=== PATIENT | female | born 1945 | race Caucasian/White ===

== ENCOUNTER → 2021-01-29 | Outpatient (CLI) | payer OTHER, MEDICARE | LOC: SJCVC 12:53 | PROVIDERS: ATTEND Internal Medicine | DX: R94.31 Abnormal electrocardiogram [ECG] [EKG] (principal); R06.09 Other forms of dyspnea; I34.1 Nonrheumatic mitral (valve) prolapse; D68.51 Activated protein C resistance; E78.5 Hyperlipidemia, unspecified; R53.83 Other fatigue; R00.2 Palpitations; R09.89 Other specified symptoms and signs involving the circulatory and respiratory systems; Z79.899 Other long term (current) drug therapy; Z79.01 Long term (current) use of anticoagulants; Z82.49 Family history of ischemic heart disease and other diseases of the circulatory system ==

== ENCOUNTER → 2021-03-14 | Outpatient (CLI) | payer OTHER, MEDICARE | LOC: SJCVCIMAG 09:31 | PROVIDERS: ATTEND Internal Medicine | DX: I08.1 Rheumatic disorders of both mitral and tricuspid valves (principal); I27.20 Pulmonary hypertension, unspecified; I49.3 Ventricular premature depolarization; I73.9 Peripheral vascular disease, unspecified; M79.604 Pain in right leg; M79.605 Pain in left leg; I48.0 Paroxysmal atrial fibrillation; D68.51 Activated protein C resistance; E78.5 Hyperlipidemia, unspecified; R53.83 Other fatigue; R06.00 Dyspnea, unspecified; Z98.890 Other specified postprocedural states; Z88.8 Allergy status to other drugs, medicaments and biological substances; Z79.01 Long term (current) use of anticoagulants; Z79.899 Other long term (current) drug therapy; Z82.49 Family history of ischemic heart disease and other diseases of the circulatory system ==

== ENCOUNTER → 2021-03-24 | Outpatient (CLI) | payer OTHER, MEDICARE | LOC: RAD 12:31 | PROVIDERS: ATTEND Internal Medicine | DX: R06.00 Dyspnea, unspecified (principal) ==

== ENCOUNTER → 2021-06-18 | Outpatient (CLI) | payer OTHER, MEDICARE | LOC: SJCVC 13:07 | PROVIDERS: ATTEND Internal Medicine | DX: R94.31 Abnormal electrocardiogram [ECG] [EKG] (principal); I48.0 Paroxysmal atrial fibrillation; E78.5 Hyperlipidemia, unspecified; D68.51 Activated protein C resistance; G47.33 Obstructive sleep apnea (adult) (pediatric); J45.909 Unspecified asthma, uncomplicated; Z88.8 Allergy status to other drugs, medicaments and biological substances; Z79.01 Long term (current) use of anticoagulants; Z79.899 Other long term (current) drug therapy; Z82.49 Family history of ischemic heart disease and other diseases of the circulatory system ==

== ENCOUNTER → 2021-12-31 | Outpatient (CLI) | payer OTHER, MEDICARE | LOC: SJCVC 12:55 | PROVIDERS: ATTEND Internal Medicine | DX: R94.31 Abnormal electrocardiogram [ECG] [EKG] (principal); I48.0 Paroxysmal atrial fibrillation; E78.5 Hyperlipidemia, unspecified; D68.51 Activated protein C resistance; G47.33 Obstructive sleep apnea (adult) (pediatric); J45.909 Unspecified asthma, uncomplicated; Z82.49 Family history of ischemic heart disease and other diseases of the circulatory system; Z72.89 Other problems related to lifestyle; Z88.8 Allergy status to other drugs, medicaments and biological substances; Z79.01 Long term (current) use of anticoagulants; Z79.899 Other long term (current) drug therapy ==